=== PATIENT | female | born 1970 | race Caucasian/White ===

== ENCOUNTER 2018-03-07 15:47 | Outpatient (CLI) | payer MEDICARE | END 2018-03-07 15:48 | disposition home or self-care (01) | LOC: BICMAMMO 15:47 | PROVIDERS: ATTEND General Practice | DX: Z12.31 Encounter for screening mammogram for malignant neoplasm of breast (principal) | CPT/HCPCS: 77063; 77067 ==

== ENCOUNTER 2023-04-11 10:07 | Inpatient (IN) | payer MEDICARE ==
[2023-04-11] MEDS ORDERED: Ondansetron PF 4 MG/2 ML Vial ONE ×2 (10:56→17:55)
[2023-04-11] MEDS ORDERED: Ketorolac Tromethamine 30 MG (1 mL) VIAL ONE ×2 (10:56→13:57)
[2023-04-11] MEDS ORDERED: diphenhydrAMINE 50 MG/ML VIAL ONE (11:38)
[2023-04-11] MEDS ORDERED: methylPREDNISolone Sod Succ/PF 125 MG/2 ML VIAL ONE (11:38)
[2023-04-11] MEDS ORDERED: Famotidine/PF 20 mg/2ml Vial ONE (11:38)
[2023-04-11 11:42] LABS: #Monocytes 0.3 thou/uL (0.11-0.59); #Neutrophils 12.9 thou/uL (1.40-6.50); %Basophils 0.2 % (0.0-1.0); %Eosinophils 0.1 % (0.0-10.0); %Lymphocytes 6.6 % (21.0-51.0); %Monocytes 2.3 % (0.0-10.0); %Neutrophils 90.4 % (42.0-75.0); Hematocrit 41.4 % (36.0-47.0); Mean Corpuscular HGB CONC 33.8 g/dL (32.0-36.0); Mean Corpuscular Hemoglobin 29.5 pg (27.0-31.0); Mean Corpuscular Volume 87.2 fl (78.0-98.0); Mean Platelet Volume 11.7 fL (7.4-10.4); Platelet Count 271 10x3/uL (130-400); RBC Distribution Width 12.2 % (11.5-14.5); Red Blood Cell (RBC) Count 4.75 mill/uL (4.20-5.40); White Blood Cell (WBC) Count 14.3 10x3/uL (4.8-10.8)
[2023-04-11 11:53] LABS: BHCG - Serum Negative (NEGATIVE); Pregs Control Background? CLEAR/WHITE (CLR/WHITE); Pregs Control Bar Appear? YES (CONTROL BAR)
[2023-04-11 13:09] LABS: ALT (SGPT) 90 U/L (8-55); AST (SGOT) 38 U/L (5-34); Albumin 4.7 g/dL (3.5-5.0); Alkaline Phosphatase 116 U/L (40-110); Anion Gap 17 mmol/L (10-20); BUN (Urea Nitrogen) 16 mg/dL (9.8-20.1); Bilirubin, Total 0.7 mg/dL (0.2-1.2); Calc. Creatinine Clearance 0 mL/min (70-130); Calcium 9.7 mg/dL (7.8-10.44); Carbon Dioxide 19 mmol/L (22-29); Chloride 105 mmol/L (98-107); Estimated GFR 84; Globulin 3.7 g/dL (2.4-3.5); Glucose 139 mg/dL (70-105); Lipase 39 U/L (8-78); Protein, Total 8.4 g/dL (6.0-8.3); Sodium 137 mmol/L (136-145)
[2023-04-11] MEDS ORDERED: Sodium Chloride 0.9% 100 ML ONE (13:50)
[2023-04-11] MEDS ORDERED: Piperacillin/Tazobactam 4.5 GM VIAL ONE (13:50)
[2023-04-11 14:05] LABS: Bacteria/HPF None Seen HPF (None Seen); Bilirubin Negative (Negative); Blood, Urine Negative (Negative); CAUTI Indications for Culture Pelvic or flank pain; Clarity Clear (Clear); Glucose, Urine (Dipstick) Normal (Negative); Ketone, Urine 20 mg/dL (Negative); Leukocyte Negative Leu/uL (Negative); Nitrite Negative (Negative); Protein, Urine (Dipstick) Negative (Neg-Trace); RBC/HPF 0-3 HPF (0-3); Squamous Epithelial None Seen HPF (0-3); Urobilinogen Normal mg/dL (Less than 2); WBC/HPF 0-3 HPF (0-3)
[2023-04-11 14:12] LABS: Urine Culture Reflex No No
[2023-04-11] MEDS ORDERED: Iopamidol-370 76% 500 ML MDV (1 ML CHARGE) ONE (14:31)
[2023-04-11] MEDS ORDERED: Ondansetron PF 4 MG/2 ML Vial IVP PRN (15:20)
[2023-04-11] MEDS ORDERED: Ipratropium/Albuterol 3 ML NEB NEB PRN (15:20)
[2023-04-11] MEDS ORDERED: Morphine 2 MG/ML VIAL SLOW IVP PRN (15:20)
[2023-04-11] MEDS ORDERED: EPINEPHrine 1 MG/ML VIAL ONE (17:27)
[2023-04-11] MEDS ORDERED: Bupivacaine 0.25% HCL 30 ML VIAL ONE (17:27)
[2023-04-11] MEDS ORDERED: Rocuronium Bromide 10 MG/ML (10ML VIAL) ONE (17:39)
[2023-04-11] MEDS ORDERED: SUCCINYLCHOLINE/SOD CL,ISO/PF 200 MG/10 ML SYRINGE FS ONE (17:39)
[2023-04-11] MEDS ORDERED: PROPOFOL 20 ML ONE (17:39)
[2023-04-11] MEDS ORDERED: Fentanyl 250 MCG/5 ML VIAL ONE (17:39)
[2023-04-11] MEDS ORDERED: Lidocaine 2% PF 5 ML VIAL ONE (17:39)
[2023-04-11] MEDS ORDERED: Midazolam HCl 2 mg/2 ml Vial ONE (17:40)
[2023-04-11] MEDS ORDERED: Dexamethasone 4 mg/ml Vial ONE (17:55)
[2023-04-11] MEDS ORDERED: Ondansetron HCl/PF 4 MG/2 ML Vial IVP PRN (18:38)
[2023-04-11] MEDS ORDERED: HYDROmorphone 2 MG/ML VIAL SLOW IVP PRN (18:38)
[2023-04-11] MEDS ORDERED: Promethazine HCl 25 MG/ML VIAL IM PRN (18:38)
[2023-04-11] MEDS ORDERED: SUGAMMADEX SODIUM 200 MG/2 ML VIAL ONE (18:47)
[2023-04-11] MEDS: Sodium Chloride 0.9% 1,000 ML IV SCH ×2 (21:40→22:05)
[2023-04-11] MEDS: Senokot S 8.6-50 MG TAB PO SCH (22:06)
[2023-04-11] MEDS: Acetaminophen 500 MG TAB PO SCH ×2 (22:13)
[2023-04-11] MEDS: Famotidine/PF 20 mg/2ml Vial SLOW IVP SCH (22:13)
[2023-04-11] MEDS: traMADol HCl 50 MG TAB PO SCH ×2 (22:14→23:47)
[2023-04-11 23:08] VITALS: BMI 39.9
[2023-04-12] MEDS: traMADol HCl 50 MG TAB PO SCH ×4 (05:11→23:27)
[2023-04-12] MEDS: Acetaminophen 500 MG TAB PO SCH ×4 (05:11→23:28)
[2023-04-12 05:16] LABS: #Monocytes 0.9 thou/uL (0.11-0.59); #Neutrophils 13.8 thou/uL (1.40-6.50); %Basophils 0.1 % (0.0-1.0); %Lymphocytes 7.7 % (21.0-51.0); %Monocytes 5.8 % (0.0-10.0); Mean Corpuscular HGB CONC 33.1 g/dL (32.0-36.0); Mean Corpuscular Hemoglobin 29.4 pg (27.0-31.0); Mean Corpuscular Volume 88.8 fl (78.0-98.0); Mean Platelet Volume 11.5 fL (7.4-10.4); Platelet Count 321 10x3/uL (130-400); RBC Distribution Width 12.5 % (11.5-14.5); Red Blood Cell (RBC) Count 3.03 mill/uL (4.20-5.40); White Blood Cell (WBC) Count 16.1 10x3/uL (4.8-10.8)
[2023-04-12 05:19] LABS: Hematocrit 26.9 % (36.0-47.0); Hemoglobin 8.9 g/dL (12.0-16.0)
[2023-04-12 05:39] LABS: Anion Gap 11 mmol/L (10-20); BUN (Urea Nitrogen) 13 mg/dL (9.8-20.1); Calc. Creatinine Clearance 143 mL/min (70-130); Calcium 8.4 mg/dL (7.8-10.44); Carbon Dioxide 24 mmol/L (22-29); Chloride 106 mmol/L (98-107); Estimated GFR 89; Glucose 167 mg/dL (70-105); Potassium 3.7 mmol/L (3.5-5.1); Sodium 137 mmol/L (136-145)
[2023-04-12] MEDS: Sodium Chloride 0.9% 1,000 ML IV SCH ×4 (09:04→23:30)
[2023-04-12] MEDS: Senokot S 8.6-50 MG TAB PO SCH ×2 (09:06→22:11)
[2023-04-12] MEDS: Polyethylene Glycol 3350 17 GM Packet PO SCH (09:06)
[2023-04-12] MEDS: Famotidine/PF 20 mg/2ml Vial SLOW IVP SCH ×2 (09:06→22:12)
[2023-04-12] MEDS: Piperacillin/Tazobactam 3.375 GM in Sodium Chloride 0.9% 100 ML IVPB SCH ×2 (13:25→22:11)
[2023-04-12] MEDS: traMADol HCl 50 MG TAB PO PRN (22:11)
[2023-04-13 05:23] LABS: #Eosinphils 0.1 thou/uL (0.0-0.7); #Monocytes 0.6 thou/uL (0.11-0.59); #Neutrophils 5.8 thou/uL (1.40-6.50); %Basophils 0.3 % (0.0-1.0); %Eosinophils 0.7 % (0.0-10.0); %Lymphocytes 27.9 % (21.0-51.0); %Neutrophils 63.4 % (42.0-75.0); Hematocrit 20.8 % (36.0-47.0); Hemoglobin 6.9 g/dL (12.0-16.0); Mean Corpuscular HGB CONC 33.2 g/dL (32.0-36.0); Mean Corpuscular Hemoglobin 29.5 pg (27.0-31.0); Mean Corpuscular Volume 88.9 fl (78.0-98.0); Platelet Count 224 10x3/uL (130-400); RBC Distribution Width 12.9 % (11.5-14.5); Red Blood Cell (RBC) Count 2.34 mill/uL (4.20-5.40); White Blood Cell (WBC) Count 9.1 10x3/uL (4.8-10.8)
[2023-04-13] MEDS: traMADol HCl 50 MG TAB PO SCH ×3 (05:41→18:45)
[2023-04-13] MEDS: Acetaminophen 500 MG TAB PO SCH ×4 (05:42→21:25)
[2023-04-13] MEDS: Piperacillin/Tazobactam 3.375 GM in Sodium Chloride 0.9% 100 ML IVPB SCH ×3 (05:42→21:26)
[2023-04-13] MEDS: Senokot S 8.6-50 MG TAB PO SCH ×2 (08:28→21:26)
[2023-04-13] MEDS: Polyethylene Glycol 3350 17 GM Packet PO SCH (08:28)
[2023-04-13] MEDS: Famotidine/PF 20 mg/2ml Vial SLOW IVP SCH ×2 (08:29→21:30)
[2023-04-13] MEDS: Sodium Chloride 0.9% 1,000 ML IV SCH (12:06)
[2023-04-13] MEDS ORDERED: diphenhydrAMINE 50 MG/ML VIAL IVP SCH (13:15)
[2023-04-13] MEDS ORDERED: Famotidine/PF 20 mg/2ml Vial SLOW IVP SCH (13:15)
[2023-04-13] MEDS: methylPREDNISolone Sod Succ 40 MG VIAL IVP SCH ×3 (15:11→21:29)
[2023-04-13] MEDS: traMADol HCl 50 MG TAB PO PRN (21:24)
[2023-04-14] MEDS: traMADol HCl 50 MG TAB PO SCH ×3 (01:59→08:50)
[2023-04-14] MEDS: methylPREDNISolone Sod Succ 40 MG VIAL IVP SCH ×3 (02:04→08:43)
[2023-04-14] MEDS: Piperacillin/Tazobactam 3.375 GM in Sodium Chloride 0.9% 100 ML IVPB SCH (05:16)
[2023-04-14] MEDS: Acetaminophen 500 MG TAB PO SCH ×2 (05:51→08:50)
[2023-04-14 07:23] LABS: #Monocytes 0.1 thou/uL (0.11-0.59); #Neutrophils 7.9 thou/uL (1.40-6.50); %Basophils 0.1 % (0.0-1.0); %Monocytes 1.1 % (0.0-10.0); %Neutrophils 87.1 % (42.0-75.0); Hematocrit 27.5 % (36.0-47.0); Hemoglobin 9.4 g/dL (12.0-16.0); Mean Corpuscular HGB CONC 34.2 g/dL (32.0-36.0); Mean Corpuscular Hemoglobin 30.1 pg (27.0-31.0); Mean Corpuscular Volume 88.1 fl (78.0-98.0); Mean Platelet Volume 10.9 fL (7.4-10.4); Platelet Count 296 10x3/uL (130-400); RBC Distribution Width 12.9 % (11.5-14.5); Red Blood Cell (RBC) Count 3.12 mill/uL (4.20-5.40); White Blood Cell (WBC) Count 9.1 10x3/uL (4.8-10.8)
[2023-04-14 08:01] VITALS: BP 150/80; TEMP 97.9
[2023-04-14] MEDS: Senokot S 8.6-50 MG TAB PO SCH (08:42)
[2023-04-14] MEDS: Polyethylene Glycol 3350 17 GM Packet PO SCH (08:42)
[2023-04-14] MEDS: Famotidine/PF 20 mg/2ml Vial SLOW IVP SCH (08:42)
[2023-04-14] MEDS ORDERED: Ferrous Sulfate 325 MG TAB PO SCH (17:00)
[2023-04-14] MEDS ORDERED: Ascorbic Acid 500 mg Chewable Tablet PO SCH (21:00)
== END 2023-04-14 11:59 | disposition home or self-care (01) | DRG 418 ==
LOC: ERS 10:07 → SJJU 15:23
PROVIDERS: ADMIT Student in an Organized Health Care Education/Training Program; ATTEND Student in an Organized Health Care Education/Training Program
PROC: 0FT44ZZ Resection of Gallbladder, Percutaneous Endoscopic Approach (ICD-10-PCS; principal; 2023-04-11)
PROC: 30233N1 Transfusion of Nonautologous Red Blood Cells into Peripheral Vein, Percutaneous Approach (ICD-10-PCS; 2023-04-13)
DX: K81.0 Acute cholecystitis (principal); D62 Acute posthemorrhagic anemia; E66.9 Obesity, unspecified; I10 Essential (primary) hypertension; J45.909 Unspecified asthma, uncomplicated; Z87.820 Personal history of traumatic brain injury; Z68.39 Body mass index [BMI] 39.0-39.9, adult
CPT/HCPCS: 36415; 36430; 74176; 74177; 76705; 80048; 80053; 81001; 83690; 84703; 85025; 86850; 86900; 86901; 88304; 96361; 96365; 96375; 96376; C1889; J0171; J0665; J1100; J1200; J1885; J2001; J2250; J2272; J2405; J2543; J2704; J2920; J2930; J3010; J3490; J7050; P9016; Q9967; S0028